=== PATIENT | female | born 1965 | race Caucasian/White ===

== ENCOUNTER 2016-05-16 12:47 | Emergency (ER) | payer OTHER ==
[2016-05-16 12:45] LABS: BASOPHILS 0.2 %; BASOPHILS ABSOLUTE 0.02 10/3/uL (0.0-0.16); EOSINOPHILS 0.1 %; EOSINOPHILS ABSOLUTE 0.01 10/3/uL (0.0-0.53); ER CBC TAT 0 Hrs 07 Mins; HEMATOCRIT 43.8 % (36.0-48.0); HEMOGLOBIN 14.3 g/dL (12.0-16.0); IMMATURE GRANULOCYTES 0.2 %; IMMATURE GRANULOCYTES ABSOLUTE 0.02 10/3/uL (0.0-0.11); LYMPHOCYTES 16.9 %; LYMPHOCYTES ABSOLUTE 1.86 10/3/uL (0.67-4.30); MANUAL DIFF NO %; MEAN CORPUS HGB CONC 32.6 g/dL (32.0-36.0); MEAN CORPUSCULAR HEMOGLOB 30.5 pg (26.0-34.0); MEAN CORPUSCULAR VOLUME 93.4 fL (80-100); MEAN PLATELET VOLUME 10.7 fL (9.2-13.0); MONOCYTES ABSOLUTE 0.66 10/3/uL (0.21-1.20); NEUTROPHILS 76.6 %; NEUTROPHILS ABSOLUTE 8.45 10/3/uL (2.02-8.40); PLATELET COUNT 198 10/3/uL (150-400); RBC DISTRIBUTION WIDTH 13.8 % (12.0-16.0); RED CELL COUNT 4.69 10/6/uL (4.0-5.6)
[~2016-05-16 12:47] MED LIST: ACIDOPHILU2 PO; ASAB PO; AT25 PO; ATIVAN 2 MG/ML IM; BENTYL10 PO; CARASPUDL PEG; CLINDA150 PO; CYMBALTA60 PO; DIL4TAB PO; DUONEB INH; FLEX PO; HALF81 PO; KEPPRA1000 MG PO; KEPPRA500 PO; KEPPRAUDL PEG; KEPPRAUDL PO; KLONO1 PO; KLONO5 PO; KLOR-CON M2020 MEQ PO; L20 PO; L40 PO; LEXAPRO10 PO; LIOR10 PEG; LIOR10 PO; LOP25 PEG; LUNESTA1 MG PO; MSCONT60 PO; MSCONTIN PO; NEXIUM40 MG PO; NITROSTAT0.4 MG SL; NORCO1 TA2 PO; NUEDEXTA 20-101 EACH PO; OXYCOD PEG; OXYCOD PO; OXYCONTIN15 MG PO; PRILOSEC40 MG PO; PRIN10 PO; PROVIGIL2 PO; REM15 PO; REQUIP2 PO; SENTAB PEG; SUCR PO; T3 PO; TESSALON200 MG PO; TOPXL25 PO; V5 PO; VITAMIN D1000 UNI1 PO; VITC500 PO; VITD PO; ZANAFLEX 4 MG TA4 MG PO; ZOFRAN2ML IM; [UNRECOGNIZED DRUG - OTHER] PEG; [UNRECOGNIZED DRUG - OTHER] PO
[2016-05-16 12:54] LABS: PROTIME (NOT ORD) 13.2 SEC (12.0-14.5)
[2016-05-16 12:58] LABS: PARTIAL THROMBO TIME 21.5 SEC (22.5-37.2)
[2016-05-16 13:00] LABS: A/G RATIO 0.9 (0.7-1.9); ALBUMIN 3.4 G/DL (3.5-5.0); CALCIUM, SERUM 8.9 MG/DL (8.5-10.4); CHLORIDE, SERUM 107 MMOL/L (96-112); CO2 (CARBON DIOXIDE) 24 MMOL/L (24-34); CREATININE 0.78 MG/DL (0.55-1.02); GFR AFRICAN AMERICAN 103 ML/MIN (>=60); GFR NON AFRICAN AMERICAN 89 ML/MIN (>=60); GLOBULIN 3.8 G/DL (2.5-4.1); SGPT(ALT) 21 U/L (5-65); SODIUM, SERUM 144 MMOL/L (135-148); TOTAL BILIRUBIN 0.3 MG/DL (0-1.2); TOTAL PROTEIN 7.2 G/DL (6.0-8.5)
[2016-05-16 13:01] LABS: ALKALINE PHOSPHATASE 121 U/L (45-117); BUN (BLOOD UREA NITROGEN) 19 MG/DL (6-23); GLUCOSE, SERUM 151 MG/DL (60-99); SGOT(AST) 34 U/L (5-40)
[2016-05-16 13:59] LABS: ASCORBIC ACID (UR NOT ORDER) 40 (NEG); BILIRUBIN, URINE NEGATIVE (NEG); ER URINALYSIS TAT 0 Hrs 00 Mins; KETONE, URINE NEGATIVE (NEG); LEUKOCYTE ESTERASE(NOT OR LARGE (NEG); NITRITE (URINE) NEG (NEG)
[2016-05-16 14:00] LABS: WBC (NOT ORDERED) (RFLEX) > 182 (0-5)
== END 2016-05-16 15:57 | disposition home or self-care (01) ==
LOC: ER 12:47
PROVIDERS: Emergency Medicine
DX: A41.9 Sepsis, unspecified organism (principal); N39.0 Urinary tract infection, site not specified; Z86.73 Personal history of transient ischemic attack (TIA), and cerebral infarction without residual deficits; Z93.1 Gastrostomy status; Z88.5 Allergy status to narcotic agent; Z88.1 Allergy status to other antibiotic agents; Z79.82 Long term (current) use of aspirin; Z79.899 Other long term (current) drug therapy
CPT/HCPCS: 71010; 80053; 81001; 83605; 83690; 85025; 85610; 85730; 87040; 87077; 87086; 87150; 87186; 93005; 96374; 99285